=== PATIENT | male | born 1975 | race American Indian/Alaskan Native ===

== ENCOUNTER 2021-05-28 08:56 | Emergency (ER) | payer SELFPAY ==
[2021-05-28 10:09] LABS: Bilirubin,Urine NEG (Negative); Blood,Urine NEG (Negative); Color,Urine Yellow (Yellow); Mucus,Urine FEW /HPF; Protein,Urine <15 mg/dL mg/dL (Negative)
[2021-05-28 10:16] LABS: Amphetamine Screen,Urine Negative; Benzodiazepines Screen,Urine Negative; Cannabinoid Screen,Urine Negative; Methadone Screen,Urine Negative; Opiate Screen,Urine Negative
--- NOTE | 2021-05-28 10:20 | Emergency Department Report ---
ED Psych HPI - General Chief Complaint: Psych Stated Complaint: SI Time Seen by Provider: 05/28/21 09:11 Source: patient Mode of arrival: Ambulatory Limitations: No Limitations - History of Present Illness Initial Comments: 45-year-old male with a past medical history hypertension and pain or schizophrenia presents to the hospital complaining of suicidal ideation x2 weeks. Today he threatened to cut his wrist with a knife and the knife was removed for him by his brother. Patient has been depressed secondary to his 21-year-old son dying of Covid 4 months ago. He also relapsed on alcohol and cocaine 2 weeks ago and stopped taking his medications at that time. He does endorse some mild auditory hallucinations. History of suicide attempt in the past via overdose. Patient is not vaccinated for Covid. States he had Covid in the past. - Related Data Allergies Allergy/AdvReac Type Severity Reaction Status Date / Time No Known Allergies Allergy Verified 05/28/21 09:30 ED Review of Systems ROS: Stated complaint: SI Other details as noted in HPI Comment: All other systems reviewed and negative ED Past Medical Hx - Past Medical History Previous Medical History?: Yes Hx Hypertension: Yes Hx Psychiatric Treatment: Yes (Paranoid schizophrenia) - Surgical History Past Surgical History?: No - Social History Smoking Status: Current Every Day Smoker Substance Use Type: Alcohol, Marijuana ED Physical Exam - General Limitations: No Limitations - Other Other exam information: General: No acute distress Head: Atraumatic Eyes: normal appearance ENT: Moist mucous membranes Neck: Normal appearance, no midline tenderness Chest: Clear to auscultation bilaterally CV: Regular rate and rhythm Abdomen: Soft, normal bowel sounds, nontender, nondistended, no rebound or guarding Back: Normal inspection Extremity: Normal inspection, full range of motion Neuro: Alert O x 3, no facial asymmetry, speech clear, no gross motor sensory deficit Psych: Appropriate behavior Skin: No rash ED Course Vital Signs 05/28/21 05/28/21 05/28/21 09:17 20:06 20:07 Temperature 97.8 F 97.6 F Pulse Rate 81 74 Respiratory 20 16 Rate Blood Pressure 140/81 117/80 [Right] O2 Sat by Pulse 96 100 99 Oximetry 05/28/21 05/29/21 05/29/21 20:11 07:47 10:25 Temperature 98.3 F 97.9 F Pulse Rate 66 67 Respiratory 18 18 Rate Blood Pressure 132/86 107/51 [Right] O2 Sat by Pulse 99 100 100 Oximetry 05/29/21 14:32 Temperature 97.6 F Pulse Rate 54 L Respiratory 22 Rate Blood Pressure 115/54 [Right] O2 Sat by Pulse 96 Oximetry ED Medical Decision Making - Lab Data Result diagrams: 05/28/21 10:25 05/28/21 10:25 Critical care attestation.: If time is entered above; I have spent that time in minutes in the direct care of this critically ill patient, excluding procedure time. ED Disposition Clinical Impression: Schizophrenia, Suicidal ideation, Polysubstance abuse, Medical clearance for psychiatric admission Disposition: [address] [place] [address] Is pt being admited?: No Condition: Stable
[2021-05-28 10:36] LABS: Cocaine Screen,Urine Positive
[2021-05-28 10:48] LABS: Basophils % (Auto) 0.3 % (0.0-1.8); Hemoglobin 13.5 gm/dl (11.8-15.2); Lymphocytes # (Auto) 1.8 K/mm3 (1.2-5.4); Lymphocytes % (Auto) 14.4 % (13.4-35.0); Mean Corpuscular HGB Conc 34 % (32-34); Mean Corpuscular Volume 94 fl (84-94); Monocytes # (Auto) 1.3 K/mm3 (0.0-0.8); Platelet Count 210 K/mm3 (140-440); Red Blood Count 4.27 M/mm3 (3.65-5.03); Red Cell Distribution Width 13.6 % (13.2-15.2)
[2021-05-28 11:03] LABS: BUN/Creatinine Ratio 10; Blood Urea Nitrogen 11 mg/dL (9-20); Calcium 9.1 mg/dL (8.4-10.2); Hemolysis Index 5
--- NOTE | 2021-05-28 11:35 | Consultation ---
History of Present Illness - Reason for Consult Consult date: 05/28/21 Reason for consult: Suicidal ideation - History of Present Psychiatric Illness Per ED Note: 45-year-old male with a past medical history hypertension and pain or schizophrenia presents to the hospital complaining of suicidal ideation x2 weeks. Today he threatened to cut his wrist with a knife and the knife was removed for him by his brother. Patient has been depressed secondary to his 21-year-old son dying of Covid 4 months ago. He also relapsed on alcohol and cocaine 2 weeks ago and stopped taking his medications at that time. He does endorse some mild auditory hallucinations. History of suicide attempt in the past via overdose. Patient is not vaccinated for Covid. States he had Covid in the past. Anurag Benitez is a 45 year old male with history of Schizophrenia, and Depression who present to the ED with suicidal ideation. In my interview with the patient he reports that his son of COVID about 4 months ago and he reports relapsing on alcohol since then. He reports on going depression; the patient reports noncompliance with psychotropic medications (last took about 2 weeks ago). The patient reports that he moved from [place] about 2 months ago and he is currently residing with his brother. He endorses suicidal ideation, when asked about his plan he states " I just don't want to live." He reports auditory hallucinations stating " voices saying I will never be nothing, you might as well kill your self." No withdrawal symptoms noted. PAST PSYCHIATRIC HISTORY: Diagnoses: schizophrenia, Depression Suicide attempts or Self-harm behavior: Yes Prior psychiatric hospitalizations: Yes Substance Abuse history: Alcohol, Cocaine Previous psychiatric medications tried: Lexapro, Risperidone Outpatient treatment:Yes PAST MEDICAL HISTORY: None reported or document Family Psychiatric History: None reported or documented SOCIAL HISTORY Marital Status: Living Arrangements: Lives with brother Employment Status:unemployed Access to guns/weapons: Denies Education:12th grade History of Abuse:No Legal History: Denies REVIEW OF SYSTEMS Constitutional: Negative for weight loss ENT: Negative for stridor Respiratory: Negative for cough or hemoptysis All other systems reviewed and are negative MENTAL STATUS EXAMINATION General Appearance and Behavior: Age appropriate, good hygiene, wearing appropriate clothes. Cooperation: cooperative Psychomotor Behavior: Psychomotor normal Mood:Depressed Affect and affective range: Incongruent with stated mood Thought Process: Obsessions Thought Content: Suicidal Speech: Normal volume, Regular rate and rhythm, Suicidal Ideation:Yes Homicidal Ideation: Denies Hallucinations: Auditory Delusions: None elicited Impulse Control: Unimpaired Insight and Judgment: Limited, poor judgment Memory: Abnormal Attention: Distractible Orientation: alert and oriented Assessment and Plan (1) Schizoaffective disorder, depressive type-F25.1 Current Visit: Yes Status: Acute Continue 1013 Start CIWA protocol Start Risperidone 1 mg po BID Start Lexapro 10mg po daily The patient to comply with previously prescribed medications Risks, benefits and alternatives of medications discussed with the patient, questions answered and consent obtained from patient. PSYCHOTHERAPY: Supportive psychotherapy provided MEDICAL: Per primary team DELIRIUM PRECAUTIONS: Please re-orient patient frequently, keep lights on during the day, and minimize benzodiazepines and opiates as these medications could worsen patient's confusion. 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 FOLLOW-UP: Will follow. Post hospital care: primary care provider, psychiatric provider Case staffed with Dr. Hooker Medications and Allergies Medications and Allergies Allergies Allergy/AdvReac Type Severity Reaction Status Date / Time No Known Allergies Allergy Verified 05/28/21 09:30 Mental Status Exam - Vital signs Last Vital Signs Temp 97.8 F 05/28/21 09:17 Pulse 81 05/28/21 09:17 Resp 20 05/28/21 09:17 BP 140/81 05/28/21 09:17 Pulse Ox 96 05/28/21 09:17 Results Result Diagrams: 05/28/21 10:25 05/28/21 10:25 Abnormal lab results 05/28/21 05/28/21 05/28/21 Range/Units 10:25 10:25 10:25 WBC 12.6 H (4.5-11.0) K/mm3 [place]lin % (Auto) 10.0 H (0.0-7.3) % [place]lin # (Auto) 1.3 H (0.0-0.8) K/mm3 Seg Neutrophils % 75.3 H (40.0-70.0) % Seg Neutrophils # 9.5 H (1.8-7.7) K/mm3 Salicylates < 0.3 L (2.8-20.0) mg/dL Acetaminophen 5.0 L (10.0-30.0) ug/mL All other labs normal.
[2021-05-28] MEDS ORDERED: ESCITALOPRAM 10 MG TAB PO SCH (12:00)
[2021-05-28] MEDS: risperiDONE 1 MG TAB PO SCH (22:19)
[2021-05-29] MEDS: risperiDONE 1 MG TAB PO SCH (10:21)
--- NOTE | 2021-05-29 10:35 | Progress Note ---
Subjective - Reason for Consult Consult date: 05/29/21 Reason for consult: suicidal ideation - Chief Complaint Chief complaint: The patient was seen resting quietly. He continues to endorse suicidal ideation without a plan. He denies having hallucinations. No withdrawal symptoms noted. REVIEW OF SYSTEMS Constitutional: Negative for weight loss ENT: Negative for stridor Respiratory: Negative for cough or hemoptysis All other systems reviewed and are negative MENTAL STATUS EXAMINATION General Appearance and Behavior: Age appropriate, good hygiene, wearing appropriate clothes. Cooperation: cooperative Psychomotor Behavior: Psychomotor normal Mood:Depressed Affect and affective range: Incongruent with stated mood Thought Process: Obsessions Thought Content: Suicidal Speech: Normal volume, Regular rate and rhythm, Suicidal Ideation:Yes Homicidal Ideation: Denies Hallucinations: Denies Delusions: None elicited Impulse Control: Unimpaired Insight and Judgment: Limited, poor judgment Memory: Abnormal Attention: Distractible Orientation: alert and oriented Assessment and Plan (1) Schizoaffective disorder, depressive type-F25.1 Current Visit: Yes Status: Acute Continue 1013 Start CIWA protocol Start Risperidone 1 mg po BID Start Lexapro 10mg po daily The patient to comply with previously prescribed medications Risks, benefits and alternatives of medications discussed with the patient, questions answered and consent obtained from patient. PSYCHOTHERAPY: Supportive psychotherapy provided MEDICAL: Per primary team DELIRIUM PRECAUTIONS: Please re-orient patient frequently, keep lights on during the day, and minimize benzodiazepines and opiates as these medications could worsen patient's confusion. 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 FOLLOW-UP: Will follow. Post hospital care: primary care provider, psychiatric provider Case staffed with Dr. Hooker Medications and Allergies Mental Status Exam - Vital signs Last Vital Signs Temp 97.9 F 05/29/21 07:47 Pulse 67 05/29/21 07:47 Resp 18 05/29/21 07:47 BP 107/51 05/29/21 07:47 Pulse Ox 100 05/29/21 10:25
--- NOTE | 2021-05-29 11:44 | Emergency Department Report ---
Blank Doc - Documentation Documentation: 45-year-old male here on 1013 for suicidal ideation No events overnight. Vital signs stable. Medically cleared mental health recommendation to continue 1013. Patient has been accepted awaiting transport to psychiatric facility
[2021-05-29 14:32] VITALS: BP 115/54
== END 2021-05-29 15:51 ==
LOC: EEVIPCON 08:56 → ED 08:56
DX: R45.851 Suicidal ideations (principal); F20.9 Schizophrenia, unspecified; Z20.822 Contact with and (suspected) exposure to COVID-19; F19.10 Other psychoactive substance abuse, uncomplicated; I10 Essential (primary) hypertension; F17.200 Nicotine dependence, unspecified, uncomplicated; F12.90 Cannabis use, unspecified, uncomplicated; Z72.89 Other problems related to lifestyle; Z79.899 Other long term (current) drug therapy
CPT/HCPCS: 36415; 80048; 80307; 81001; 85025; 99285; U0003; 80320; G0480